=== PATIENT | male | born 2000 | race Caucasian/White ===

== ENCOUNTER 2022-07-28 18:22 | Emergency (ER) | payer SELFPAY ==
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
--- NOTE | 2022-07-28 19:32 | PC.NURSE ---
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 Pt stated that he would like to leave. Stated that he was told that he could if he wanted to. Contacted Charge and notified her of the pt desire to leave. Since pt denied SI/HI to both EMS and triage stated pt is free to go. insurance follow up rep stated that if wanted to leave he can, but if he needs anything that he can always come back to be seen again.
== END 2022-07-28 19:32 | disposition left against medical advice (07) ==
LOC: ANHED 19:49
DX: R45.851 Suicidal ideations (principal)
CPT/HCPCS: 99199

== ENCOUNTER 2024-04-13 09:56 | Emergency (ER) | payer OTHER, SELFPAY ==
[2024-04-13] VITALS (8 sets, daily range): BP systolic 125–147; BP diastolic 68–93; PULSE 45–65; RESP 14–20; TEMP 36.3–36.4; O2SAT 99–100
--- NOTE | ~2024-04-13 | CT_ITS ---
CT abdomen pelvis w con Ordering provider: Daisy Valdes PA-C History: 23 years Male with . pain, nv/d . Comparison: November 23, 2017 Technique: CT abdomen and pelvis with IV and without oral contrast. Automated exposure control and it erative reconstruction technique were employed. The dose-length product was 290.19 mGy-cm. 100 mL Omn ipaque 350 was given IV. Findings: VISUALIZED LOWER CHEST: Normal. UPPER ABDOMINAL ORGANS: Liver: Mild hepatomegaly. Gallbladder: Normal. Spleen: Normal. Stomach/duodenum: Normal. Pancreas: Normal. Adrenals: Normal. Kidneys: Tiny cyst in the right kidney upper pole. PELVIC ORGANS: The bladder is underfilled. BOWEL AND MESENTERY: Colon: No evidence of diverticulitis. Normal appendix. Small Bowel: Normal. No obstruction. Peritoneum/mesentery: No free air or free fluid. No mesenteric lymphadenopathy. RETROPERITONEUM: Normal aorta. No retroperitoneal lymphadenopathy. MUSCULOSKELETAL: Superficial soft tissues: The superficial soft tissues are normal. Bones: Normal spine. IMPRESSION: 1. No evidence of appendicitis, diverticulitis or intestinal obstruction. Reviewed, dictated and finalized at location A.
[2024-04-13] MEDS: ONDANSETRON INJ 4 MG/2 ML VIAL IV PUSH (10:17)
--- NOTE | 2024-04-13 10:35 | ED.NAVMDI ---
HPI - Nausea/Vomiting/Diarrhea General Chief complaint: Nausea/Vomiting/Diarrhea Stated complaint: vomiting, headache Time Seen by Provider: 04/13/24 10:02 Source: patient Mode of arrival: ambulatory Limitations: no limitations History of Present Illness HPI Narrative: patient is a 23-year-old male who presents the ED With multiple complaints. Patient reports he began feeling ill around 3 a.m. this morning. He reports having nausea, vomiting, headache, diaphoresis, cold chills. states she is unable to keep anything down this morning which prompted his presentation. Reports diffuse abdominal pain. Reports mild cough. Denies known fever. Denies diarrhea, constipation, rectal bleeding, melena. Denies sick contacts. Related Data Allergies Allergy/AdvReac Type Severity Reaction Status Date / Time amoxicillin AdvReac Unknown Nausea Verified 04/13/24 10:17 Review of Systems Review of Systems: All systems reviewed & are unremarkable except as noted in HPI. All systems reviewed & are unremarkable except as noted in HPI and below Exam Narrative: GENERAL: Mildly ill appearing, well-nourished, In mild acute distress. Actively vomiting upon exam. HEAD: Normocephalic, atraumatic. RESPIRATORY: Airway patent, respirations nonlabored. Clear to auscultation bilaterally, no rales, rhonchi, wheezing. CARDIOVASCULAR: Borderline bradycardic with regular rhythm without murmurs, rubs, or gallops. ABDOMINAL: Soft, diffuse tenderness, nondistended. Normoactive BS. MUSCULOSKELETAL: Moves all extremities. No gross deformities. SKIN: Warm, dry, normal color. NEURO: A&O X3. Speech clear. PSYCHIATRIC: Appropriate mood and affect. Normal interaction. Course Vital Signs Vital signs: Vital Signs Temperature 97.5 F L 04/13/24 10:15 Temperature 97.4 F L 04/13/24 10:40 Pulse Rate 48 L 04/13/24 11:00 Respiratory Rate 14 04/13/24 11:00 Blood Pressure 147/93 H 04/13/24 11:00 Pulse Oximetry 100 04/13/24 11:00 MDM - Nausea/Vomiting/Diarrhea MDM Narrative Medical decision making narrative: patient presented to ED with nausea, vomiting, headache. onset throughout the night. Patient borderline bradycardic upon arrival. Vitals are otherwise stable. Patient is afebrile. Cbc without leukocytosis or anemia. CMP with potassium 3.3. Will replace. Mild anion gap of 15. Fluids ongoing. Stable kidney function. Normal LFTs and lipase. Urinalysis clear. Viral swabs negative. CT scan of abdomen /pelvis obtained and unremarkable. Patient given 2 L of fluid in the ED, in addition to Benadryl, Reglan, Toradol, Zofran. On re-evaluation, he is resting comfortably, feeling much better with supportive therapy. Able to tolerate p.o. intake. Feel he is safe for discharge home at this time. Discussed possibility of viral gastroenteritis versus food poisoning versus other viral syndrome. Will discharge with Zofran and Bentyl for home use. Discussed strict return precautions. Patient in agreement with plan and feels comfortable going home. Discharged in stable condition. Medical Records Attestation: I reviewed the patient's medical records. Lab Data Attestation: I reviewed the patient's lab results. 04/13/24 10:27 04/13/24 10:27 Labs: Lab Results 04/13/24 04/13/24 Range/Units 10:27 10:59 WBC 7.8 (4.5-10.0) K/mm3 RBC 5.29 (4.6-6.20) M/mm3 Hgb 16.2 (14.0-18.0) g/dL Hct 45.5 (42.0-52.0) % MCV 86.0 (80-100) fl MCH 30.6 (26-34) pg MCHC 35.6 (32-36) g/dl RDW 12.0 (11.5-14.5) % Plt Count 255 (150-375) k/mm3 MPV 9.1 (7.4-10.4) fl Immature Gran % (Auto) 0.1 (0-0.5) % Neut % (Auto) 44.5 L (45.5-73.1) % Lymph % (Auto) 45.0 H (18.3-44.2) % Rabun % (Auto) 8.4 (2.6-8.5) % Eos % (Auto) 1.5 (0-4.4) % Baso % (Auto) 0.5 (0.2-1.2) % Lymph # (Auto) 3.50 H (0.9-3.2) K/mm3 Rabun # (Auto) 0.7 H (0.1-0.6) K/mm3 Eos # (Auto) 0.1
[2024-04-13 10:36] LABS: Basophils Percent Auto 0.5 % (0.2-1.2); Eosinophils Absolute Auto 0.1 K/mm3 (0-0.3); Eosinophils Percent Auto 1.5 % (0-4.4); Hematocrit 45.5 % (42.0-52.0); Hemoglobin 16.2 g/dL (14.0-18.0); Immature Granulocyte Absolute 0.01 K/mm3 (0.00-0.031); Immature Granulocyte Percent A 0.1 % (0-0.5); Mean Corpuscular HGB Conc 35.6 g/dl (32-36); Mean Corpuscular Hemoglobin 30.6 pg (26-34); Mean Platelet Volume 9.1 fl (7.4-10.4); Monocytes Absolute Auto 0.7 K/mm3 (0.1-0.6); Monocytes Percent Auto 8.4 % (2.6-8.5); Neutrophils Absolute Auto 3.5 K/mm3 (1.3-6.7); Neutrophils Percent Auto 44.5 % (45.5-73.1); Platelet Count Result 255 k/mm3 (150-375); Red Blood Count 5.29 M/mm3 (4.6-6.20); White Blood Count 7.8 K/mm3 (4.5-10.0)
[2024-04-13] MEDS: SODIUM CHLORIDE 0.9% IV 1,000 ML 999 ML IV CONT ×2 (10:43→11:58)
[2024-04-13 10:49] LABS: Alanine Aminotransferase 14 U/L (6-50); Albumin Level 5.5 g/dL (3.5-5.1); Alkaline Phosphatase 84 U/L (38-126); Anion Gap 15 mmol/L (4-12); Aspartate Amino Transferase 31 U/L (17-59); Blood Urea Nitrogen 13 mg/dL (9-20); Calcium 9.9 mg/dL (8.4-10.2); Carbon Dioxide 24 mmol/L (22-30); Chloride 97 mmol/L (98-107); Estimated Glomerular Filt Rate > 60; Glucose 132 mg/dL (65-110); Lipase 65 U/L (23-300); Potassium 3.3 mmol/L (3.4-5.0); Sodium 136 mmol/L (137-145)
[2024-04-13] MEDS: METOCLOPRAMIDE HCL INJ 10 MG/2 ML VIAL IV PUSH (10:51)
[2024-04-13] MEDS: diphenhydrAMINE HCl INJ 50 MG/ML VIAL 25 MG IV PUSH (10:51)
[2024-04-13 11:14] LABS: Influenza A QL RT-PCR Negative (Negative); Influenza B QL RT-PCR Negative (Negative); RSV RNA, RT-PCR Negative (Negative); SARS-CoV-2 RNA PCR Negative (Negative)
[2024-04-13 11:26] LABS: Add Urine Microscopic? YES; Appearance Urine Clear (Clear); Bacteria Urine None Seen /hpf; Bilirubin Urine Negative (Negative); Blood Urine Negative (Negative); Color Urine Yellow (Yellow); Glucose Urine UA Negative (Negative); Ketones Urine Negative (Negative); Leukocyte Esterase Ur Negative LEU/UL (Negative); Nitrate Urine Negative (Negative); Non Pathogenic Casts 0-2; Protein Urine Trace mg/dL (Negative); RBC Urine 0-2 /hpf (0-2); Squamous Epithelial Cell Urine None Seen /hpf (Few); Urobilinogen Urine 0.2 mg/dL (<2.0); WBC Urine 0-5 /hpf (0-3)
[2024-04-13] MEDS: KETOROLAC 30 MG/ML VIAL (*BKC) IV PUSH (12:29)
--- NOTE | 2024-04-13 12:55 | PC.NURSE ---
LAB WAS NOTIFIED OF NEED FOR MAGNESIUM LEVEL TO BE ADDED TO THE BLOOD.
[2024-04-13 13:07] LABS: Magnesium 2.1 mg/dL (1.6-2.3)
[2024-04-13] MEDS: POTASSIUM CHLORIDE 20 MEQ ER TABLET PO (13:44)
== END 2024-04-13 13:50 | disposition home or self-care (01) ==
PROVIDERS: Emergency Provider Physician Assistant
DX: R11.2 Nausea with vomiting, unspecified (principal); E86.0 Dehydration; Z20.822 Contact with and (suspected) exposure to COVID-19
CPT/HCPCS: 36415; 74177; 80053; 81001; 83690; 83735; 85025; 87637; 96361; 96374; 96375; 99284; A9270; J1200; J1885; J2405; J2765; J7030; Q9967